=== PATIENT | female | born 1995 | race Caucasian/White ===

== ENCOUNTER 2017-01-28 06:01 | Inpatient (IN) ==
[2017-01-28] MEDS ORDERED: Lidocaine -MPF 1% 2 ML VIAL ONE (06:16)
[2017-01-28] MEDS ORDERED: Ringers Solution, Lactated 1,000 ML ONE ×3 (06:16→09:01)
[2017-01-28] MEDS ORDERED: Famotidine 20 MG/2 ML VIAL IVP ONE (06:20)
[2017-01-28] MEDS ORDERED: Oxytocin 20 units/ LR 1000 mL 20 UNIT/1,000 ML BAG IVC ONE (06:20)
[2017-01-28] MEDS ORDERED: Metoclopramide 10 MG/2 ML VIAL IVP ONE (06:20)
[2017-01-28] MEDS ORDERED: CeFAZolin Premix DUPLEX 2,000 MG/50 ML BAG IVPB ONE (06:20)
[2017-01-28] MEDS ORDERED: Naloxone 0.4 MG/ML INJ IVP PRN (06:27)
[2017-01-28] MEDS ORDERED: Ringers Solution, Lactated 1,000 ML IVC SCH (06:30)
--- NOTE | 2017-01-28 06:33 | Anesthesia Evaluation PreOp ---
Date of Encounter: 01/28/17 Time of Encounter: 06:31 - Past History Planned Operation: repeat Cardiac History: Denies any Significant Hx Pulmonary History: Denies Any Significant HX COATING AND EMBOSSING UNIT OPERATOR History: Denies Any Significant HX Other Medical History: Other (anemia) Anesthesia History: No Prior Anesthetic Complications, Past Anesthesia Alcohol Use: none Drug use: none Medications and Allergies Ferrous Sulfate [Iron] 325 mg PO DAILY 01/28/17 [History] Pediatric Multivit Comb. No.49 [Flintstones Gummies] 1 tab PO DAILY 01/28/17 [ History] 3 Allergy/AdvReac Type Severity Reaction Status Date / Time No Known Allergies Allergy Verified 01/28/17 06:28 Anesthesia Exam - HEENT Pupil (Motor): Pupils equal Mallampati: II Teeth: Normal Oral Opening: Greater than 3 - COATING AND EMBOSSING UNIT OPERATOR LOC: Oriented COATING AND EMBOSSING UNIT OPERATOR Motor: Normal RUE, Normal LUE, Normal RLE, Normal LLE, Normal Face COATING AND EMBOSSING UNIT OPERATOR Sensory: Normal: RUE, LUE, RLE, LLE, Face - Cardiac Rhythm: Regular Murmur: None - Pulmonary Breath Sounds: bilateral Clear Respiratory Effort: Symmetrical Anesthesia Assess/Plan ASA Score: 2 Modified [place] Scale for Level of Consciousness: Cooperative, oriented, and tranquil Anesthetic Plan: General, Regional Monitoring Plan: Standard Monitors Recovery Plan: PACU
[2017-01-28] MEDS ORDERED: *HR* Promethazine 25 MG/ML VIAL IVP PRN (06:34)
[2017-01-28] MEDS ORDERED: *HR* HYDROmorphone (PF) 1 MG/ML SYRINGE IVP PRN (06:34)
[2017-01-28] MEDS ORDERED: *HR* Labetalol 20 MG/4 ML SYRINGE IVP PRN (06:34)
[2017-01-28] MEDS ORDERED: *HR* FentaNYL (PF) 100 MCG/2 ML VIAL ONE (06:46)
[2017-01-28] MEDS ORDERED: *HR* Morphine Sulfate/PF 5 MG/10 ML AMPUL ONE (06:46)
--- NOTE | 2017-01-28 06:48 | OB/GYN History & Physical ---
Date of Encounter: 01/28/17 Time of Encounter: 06:35 Assessment and Plan (1) 39 weeks gestation of Current visit: Yes Status: Acute Patient is scheduled for a repeat and will be admitted to labor and delivery. - Cefazolin - IV fluids - Oxytocin - NPO - CBC - UDS - Hydromorphone PRN. History of Present Illness Chief complaint: Scheduled HPI: Ms. Barnett is a 21 year old female at 39 2/7 weeks gestation that presents for a scheduled . She admits to good movement. Denies vaginal fluid leakage or bleeding. She denies any regular contractions. Denies OLVERA, vision changes, fever, chest pain, nausea, vomiting, dysuria, or diarrhea. GBS: negative HIV Ag/Ab: non-reactive T. Pallidum: negative Rubella Ab: positive Varicella Ab: positive Blood Type: A+ HepBSAg: non-reactive Past Med Surg Social Fam HX - Past Medical History Medical history: no medical history Psychiatric history: no psych history - Past Surgical History Surgical History: - Social History Smoking Status: Never smoker Smokeless Tobacco Status: No Alcohol use: none Drug use: none - Family History Father Age: 43 Family Member Ethnicity: Non- Living Status: Cause of : heart attack Obstetrical History - Pregnancies : 3 Para: 2 Term: 2 : 0 Ab's: 0 Livin Medications and Allergies Ferrous Sulfate [Iron] 325 mg PO DAILY 01/28/17 [History] Pediatric Multivit Comb. No.49 [Flintstones Gummies] 1 tab PO DAILY 01/28/17 [ History] 3 Allergy/AdvReac Type Severity Reaction Status Date / Time No Known Allergies Allergy Verified 01/28/17 06:28 Exam - Vital Signs Vital signs: BP: 121/73 HR: 88 FHR: 133 [place]: 24 - Constitutional Constitutional: well developed, well nourished, no acute distress, average body habitus - Lungs Respiratory exam: CTAB - Cardiovascular Cardiovascular exam: RRR, +S1, +S2 - Abdomen Abdomen: Present: bowel sounds normal, gravid, non tender - Extremities Extremities exam: full ROM, normal capillary refill, normal inspection, radial pulses palpable and symmetrical Deep Tendon Reflex Grade: 2+ Normal - Comments Comments: Extremities: pedal pulses intact and symmetrical bilaterally. Results All other labs normal. - VTE Reasons for not Prescribing Prophylaxis: Treatment not Indicated - Low risk for VTE
[2017-01-28 06:58] LABS: Basophils # 0.1 K/mcL (0.0-0.2); Basophils % 0.8 %; Eosinophils # 0.1 K/mcL (0.0-0.6); Eosinophils % 1.4 %; Hemoglobin 12.4 g/dL (11.5-15.4); Immature Granulocytes % 3.7 % (0-4); Lymphocytes # 1.7 K/mcL (0.6-4.6); Lymphocytes % 17.4 %; Mean Corpuscular HGB Conc 33.5 g/dL (31.6-35.5); Mean Corpuscular Hemoglobin 29.5 pg (28.0-33.3); Mean Corpuscular Volume 87.9 fL (83.0-100.0); Mean Platelet Volume 10.8 fL (9.4-12.4); Monocytes # 0.7 K/mcL (0.0-1.3); Monocytes % 6.7 %; Neutrophils # 6.9 K/mcL (1.6-8.9); Platelet Count 260 K/mcL (140-400); Red Blood Count 4.21 M/mcL (3.82-4.97); Red Cell Distribution Width 13.4 % (11.5-14.5)
--- NOTE | 2017-01-28 07:27 | History & Physical Report ---
Date of Encounter: 01/28/17 Time of Encounter: 07:26 24 Hour HP Update - Instructions Instructions: If the History and Physical is less than 30 days old and was completed prior to A.M. admission and or procedure and has NOT been updated on calendar day of procedure please complete this update prior to performing procedure. - Update Patient reports changes in Medical Condition: No Changes in examination, assessment, or condition: No Changes in Medication: No Preop tests/diagnostics Reviewed: Yes Surgery Remains Indicated: Yes Consent for Planned Operative Procedure(s) Verified: Yes - Pre-Operative Checklist Preoperative Checklist Indicated: Yes Prophylactic Antibiotic Ordered: Yes Home Medications Include Beta Sky: No Is VTE Prophylaxis Indicated?: Yes
[2017-01-28] MEDS ORDERED: *HR* Phenylephrine 10 MG/ML VIAL ONE (07:38)
[2017-01-28] MEDS ORDERED: *HR* Oxytocin 10 UNIT/ML VIAL IM ONE ×2 (08:27→09:02)
--- NOTE | 2017-01-28 09:12 | OB/GYN Procedure Note ---
Section - Date of procedure: 01/28/17 Preop diagnosis: desires repeat Post-op diagnosis: same Procedure: repeat low transverse Surgeon: Waldo Cobb Estimated blood loss (cc): 500 Excellence Coach: Frank Willis Anesthesia Type: Spinal section complications: none Disposition: L&D Recovery Room Specimens: Placenta - Infant (s) A Delivery Date: 01/28/17 Delivery Time: 08:25 Presentation: vertex Position: YUMIKO Route of delivery: other Gender: Male Viability: Viable Pounds: 7 Ounces: 9 Gram Weight: 3420 kg at 1 minute: 9 at 5 minutes: 9 Shoulder Dystocia: not encountered Placenta: complete extraction Cord: 3 umbilical vessels - Narrative Narrative: Patient was taken to the operating room and placed in supine position with left uterine displacement following the administration of spinal anesthetic. Skin was then prepped and draped in usual sterile fashion, and a timeout procedure was performed. A Pfannenstiel incision was performed removing the previous surgical scar, and extended down to the fascial layer until the abdominal cavity was entered. A bladder flap was then gently created with sharp dissection. A low transverse uterine incision was performed and extended bilaterally with bandage scissors. The membranes were then ruptured with clear fluid present. A viable male was delivered from a vertex presentation with scores of 9 and 9 at 1 and 5 minutes respectively and the weighed 7 pounds 9 ounces. The cord was clamped and cut, and the was handed to the nursery team. The placenta was manually removed. The uterine cavity was wiped clean with wet lap sponge. The uterine incision was closed in a layered fashion with 0 Vicryl suture in a running locking fashion. Good hemostasis was noted. The Paracolic gutters were then gently wiped clean with wet lap sponge. Inspection was then performed with good hemostasis still noted. The fascial layer was closed with 0 PDS Stratafix suture in a running nonlocking fashion. The subcutaneous layer was irrigated with sterile water and then closed with 4-0 Vicryl suture in a running nonlocking fashion, and continuing to close the skin in a running subcuticular fashion. A piece of Dermabond mesh was then applied over the incision site. Patient tolerated procedure well, all sponge needle and instrument counts reported as correct. Estimated blood loss was 500 mL. The urine in the Gutiérrez catheter was clear and yellow, and she was taken to recovery room in stable condition.
[2017-01-28 10:18] LABS: Amphetamine Screen,Urine Negative ng/mL (Cutoff=1000); Barbiturate Screen,Urine Negative ng/mL (Cutoff=200); Benzodiazepines Screen,Urine Negative ng/mL (Cutoff=200); Cannabinoid Screen,Urine Negative ng/mL (Cutoff = 50); Cocaine Screen,Urine Negative ng/mL (Cutoff= 300); Opiate Screen,Urine Negative ng/mL (Cutoff=300); Phencyclidine Screen,Urine Negative ng/mL (Cutoff=25)
[2017-01-28] MEDS ORDERED: Oxytocin 20 units/ LR 1000 mL 20 UNIT/1,000 ML BAG IVC SCH (11:36)
[2017-01-28] MEDS ORDERED: Ibuprofen 600 MG TABLET PO PRN (11:36)
[2017-01-28] MEDS ORDERED: *HR* OxyCODONE/APAP 5/325 TABLET PO PRN (11:36)
[2017-01-28] MEDS ORDERED: Metoclopramide 10 MG/2 ML VIAL IVP PRN (11:36)
[2017-01-28] MEDS ORDERED: Ondansetron 4 MG/2 ML VIAL IVP PRN (11:36)
[2017-01-28] MEDS ORDERED: Simethicone 80 MG TAB.CHEW PO PRN (11:36)
--- NOTE | 2017-01-28 16:11 | Anesthesia Evaluation Post Op ---
Date of Encounter: 01/28/17 Time of Encounter: 16:10 - Vital Signs Vital Signs: Vital Signs/O2 Sat, Most Current Temp Pulse Resp BP Pulse Ox 98.0 F 73 16 113/71 97 01/28/17 15:07 01/28/17 15:07 01/28/17 15:07 01/28/17 15:07 01/28/17 12:38 - Lungs Lungs: Clear Ascult./Percussion - Airway Airway: Non-obstructed - Cardiovascular Regular Rate - Mental Status Mental Status: Alert & Oriented, Answers Appropriately - Pain Pain Scale: 3 - Nausea Vomiting Nausea Vomiting: Not Present - Hydration Hydration: Tolerates oral liquids, Gutiérrez catheter - Discharge PostOp Status: Transfer Patient to floor
[2017-01-29 07:33] LABS: Eosinophils % 0.6 %; Hemoglobin 11.3 g/dL (11.5-15.4); Immature Granulocytes % 1.3 % (0-4); Lymphocytes % 8.4 %; Mean Corpuscular HGB Conc 33.2 g/dL (31.6-35.5); Mean Corpuscular Hemoglobin 29.6 pg (28.0-33.3); Mean Platelet Volume 10.4 fL (9.4-12.4); Monocytes % 5.4 %; Platelet Count 192 K/mcL (140-400); Red Blood Count 3.82 M/mcL (3.82-4.97); Red Cell Distribution Width 13.4 % (11.5-14.5); Segmented Neutrophils % 83.7 %
[2017-01-29 07:34] LABS: Basophils # 0.1 K/mcL (0.0-0.2); Basophils % 0.6 %; Eosinophils # 0.1 K/mcL (0.0-0.6); Monocytes # 0.7 K/mcL (0.0-1.3)
--- NOTE | 2017-01-29 08:56 | OB/GYN Progress Note ---
Date of Encounter: 01/29/17 Time of Encounter: 08:54 - Assessment and Plan (1) S/P repeat low transverse Current Visit: Yes Status: Acute Continue routine post-op/ post orders Anticipate discharge home tomorrow. Subjective - Subjective Principal diagnosis: Repeat C/S Interval history: S/P R C/S Day1 Pain is well controlled; referred gas pain in right shoulder - encouraged walking, water, and gas-x; excellent bowel sounds and passing flatus VSS Lochia light and without clots Voiding and passing flatus without difficulty. Pumping and breast feeding Discharge home tomorrow. Patient reports: appetite normal, voiding normally, pain well controlled, ambulating normally [place]: doing well, nursing well Objective - Vital Signs Latest vital signs: Vital Signs Temp Pulse Pulse Resp BP Pulse Ox 01/29/17 06:00 16 01/29/17 03:35 98 F 75 14 107/66 96 01/29/17 00:10 97.9 F 76 16 112/69 97 01/28/17 22:42 16 01/28/17 20:20 97.9 F 65 14 109/69 96 01/28/17 15:07 98.0 F 73 16 113/71 01/28/17 15:04 16 01/28/17 13:36 98.5 F 84 80 16 100/60 01/28/17 13:35 98.5 F 84 16 100/60 01/28/17 12:38 97.5 F L 79 12 108/62 97 01/28/17 12:32 97.5 F L 79 12 108/62 97 01/28/17 12:00 76 16 01/28/17 11:30 98.3 F 74 12 111/69 98 Intake and Output 01/28/17 01/29/17 01/29/17 23:59 07:59 15:59 Output Total 200 / 200 1500 / 1500 500 / 500 Balance -200 / -200 -1500 / -1500 -500 / -500 Output: Urine 500 / 500 Catheter 200 / 200 1500 / 1500 Other: Weight 68.8 kg Patient Weight 01/29/17 23:59 Weight 68.8 kg - Exam Lungs: bilateral: normal Chest: Normal S1, Normal S2 Extremities: Present: normal Abdomen: Present: normal appearance, soft. Absent: gravid, tenderness Incision: Present: normal, dry, intact Uterus: Present: normal, firm Fundal Height: 0 (U) - Labs Labs: Laboratory Results - last 24 hr 01/28/17 01/29/17 06:20 07:16 WBC 12.0 H RBC 3.82 Hgb 11.3 L Hct 34.0 L MCV 89.0 MCH 29.6 MCHC 33.2 RDW 13.4 Plt Count 192 MPV 10.4 Immature Gran % 1.3 Seg Neutrophils % 83.7 Lymphocytes % 8.4 Monocytes % 5.4 Eosinophils % 0.6 Basophils % 0.6 Neutrophils # 10.0 H Lymphocytes # 1.0 Monocytes # 0.7 Eosinophils # 0.1 Basophils # 0.1 Urine Opiates Screen Negative Ur Barbiturates Screen Negative Ur Phencyclidine Scrn Negative Ur Amphetamines Screen Negative U Benzodiazepines Scrn Negative Urine Cocaine Screen Negative U Marijuana (THC) Screen Negative
[2017-01-29] MEDS ORDERED: Prenatal Vit/FA 1 EACH TABLET PO SCH (09:00)
[2017-01-29] MEDS ORDERED: Acetaminophen w/Codeine 120-12 mg Soln 5 ML UDC PO PRN (09:33)
[2017-01-29 20:46] VITALS: BP 111/79
--- NOTE | 2017-01-30 08:43 | Discharge Summary ---
Date of Encounter: 01/30/17 Time of Encounter: 08:00 - Discharge Diagnosis (1) 39 weeks gestation of Priority: Primary Status: Resolved (2) S/P repeat low transverse Priority: Primary Status: Acute Comments: Pain well managed on po pain medication, tolerates regular diet, breast and bottle feeding , desires discharge. - Discharge Medications Prescriptions: Ibuprofen [Motrin] 600 mg PO Q6HR PRN #60 tablet PRN Reason: Cramping OxyCODONE/APAP 5/325 [Percocet 5/325 MG] 1 each PO Q6HR PRN #20 tablet PRN Reason: Moderate pain 4-6 Breast Pump [BREAST PUMP] 1 each .ROUTE AD #1 each Docusate [Colace] 100 mg PO BID #30 capsule Home Medications: Pediatric Multivit Comb. No.49 [Flintstones Gummies] 1 tab PO DAILY 01/28/17 [ History] Breast Pump [BREAST PUMP] 1 each .ROUTE AD #1 each 01/30/17 [Rx] Docusate [Colace] 100 mg PO BID #30 capsule 01/30/17 [Rx] Ibuprofen [Motrin] 600 mg PO Q6HR PRN #60 tablet 01/30/17 [Rx] OxyCODONE/APAP 5/325 [Percocet 5/325 MG] 1 each PO Q6HR PRN #20 tablet 01/30/17 [Rx] Allergies/Adverse Reactions: 3 Allergy/AdvReac Type Severity Reaction Status Date / Time No Known Allergies Allergy Verified 01/28/17 06:28 Data Procedures and tests throughout hospitalization: Laboratory Tests 01/28/17 01/28/17 01/29/17 06:20 06:20 07:16 WBC 9.9 12.0 H RBC 4.21 3.82 Hgb 12.4 11.3 L Hct 37.0 34.0 L MCV 87.9 89.0 MCH 29.5 29.6 MCHC 33.5 33.2 RDW 13.4 13.4 Plt Count 260 192 MPV 10.8 10.4 Immature Gran % 3.7 1.3 Seg Neutrophils % 70.0 83.7 Lymphocytes % 17.4 8.4 Monocytes % 6.7 5.4 Eosinophils % 1.4 0.6 Basophils % 0.8 0.6 Neutrophils # 6.9 10.0 H Lymphocytes # 1.7 1.0 Monocytes # 0.7 0.7 Eosinophils # 0.1 0.1 Basophils # 0.1 0.1 Urine Opiates Screen Negative Ur Barbiturates Screen Negative Ur Phencyclidine Scrn Negative Ur Amphetamines Screen Negative U Benzodiazepines Scrn Negative Urine Cocaine Screen Negative U Marijuana (THC) Screen Negative Date of admission: 01/28/17 06:01 Primary care physician: PCP NONE Discharging clinician: Russell Murdock Anticipated date of discharge: 01/30/17 - Patient Status Disposition: Home, Self-Care Condition: Good Functional capacity at discharge: independent ambulation Overall status at discharge: patient is progressing back to baseline - Discharge Instructions Additional Instructions: Perineal Care: Always wipe front to back Change your pad frequently Use your schuyler bottle with warm water and spray front to back Do not douche, use tampons, have sexual intercourse or put anything in your vagina for 4-6 weeks after delivery Bleeding: Vaginal bleeding can last up to 6 weeks Your menstrual period may return as early as 6 weeks after you are discharged from the hospital Kevin/Stitches Care: Vaginal Delivery Vaginal stitches will dissolve within 4-6 weeks Follow perineal care instructions Care Stitches will dissolve on their own If you have kevin, they will need to be removed in the doctors office within 5-7 days. You may shower with stitches or kevin Drip plan or soapy water over the incision to clean. Pat dry gently with a clean towel. Make sure you completely dry under the skin folds DO NOT USE powders, lotions, rubbing alcohol or hydrogen peroxide on or around your incision. This will slow your wound healing It is normal to have soreness, burning, tingling, itchiness and/or numbness as your incision heals Activity: Rest frequently Do not lift anything heavier than a gallon of milk, up to 10-15 pounds No driving for 1-2 weeks for Vaginal delivery No driving for 2-4 weeks for delivery Take stairs slowly, one at a time Gradually increase your daily activity until you are back to your normal routine Do not exercise until you have had your follow-up appointment Bathing: Take a shower daily Do not take a tub bath for the first 4 weeks Diet: Drink plenty of water and fruit juices Eat a well-balanced diet with foods high in fiber such as fruits and vegetables Depression: Your hormones have a major impact on your feelings and emotions. Hormone imbalance may cause changes in your mood, creating unfamiliar thoughts and actions. Support is available to help you understand and cope with these feelings and mood changes. If you answer yes to any of the following questions, please call your health care provider: Are you having trouble sleeping? Are you feeling isolated? Have you lost your appetite? Are you having thoughts of hurting yourself or others? WARNING SIGNS: Heavy bleeding from the vagina (blood is bright red and soaks a sanitary pad in an hour or less.) Passing a blood clot larger than your fist Discharge from the vagina that has a bad odor Temperature over 100.4 F, or if you feel cold and have chills An episiotomy site that is warm, swollen or oozing. Use a mirror if needed Urination (pee) that is painful, very red and swollen or leaking fluid An incision that is painful, very red and swollen and leaking fluid An incision that has come open Breasts that are painful or full with flu like symptoms Redness, warmth or swelling in the calf of your leg Trouble breathing, dizziness, visual disturbance or faintness *Notify your health care provider immediately or go to the nearest Emergency Room if you experience any of the above signs.* To contact the nurses station 24 hours a day, For non-urgent, routine questions, please call the office at - Diet and Activity Activity: resume usual activities as tolerated Diet: regular diet Hospital Course Reason for admission: section Delivery: section Episiotomy: none Laceration: none Other procedures: none complications: none Discharge diagnosis: IUP at term delivered baby: male Hospital course: Ms. Barnett is a 21 year old female that presented at 39 2/7 weeks gestation for a scheduled . She admitted to good movement. Denied vaginal fluid leakage or bleeding. She denied any regular contractions. Patient was taken to the operating room and placed in supine position with left uterine displacement following the administration of spinal anesthetic. Skin was then prepped and draped in usual sterile fashion, and a timeout procedure was performed. A Pfannenstiel incision was performed removing the previous surgical scar, and extended down to the fascial layer until the abdominal cavity was entered. A bladder flap was then gently created with sharp dissection. A low transverse uterine incision was performed and extended bilaterally with bandage scissors. The membranes were then ruptured with clear fluid present. A viable male was delivered from a vertex presentation with scores of 9 and 9 at 1 and 5 minutes respectively and the infant weighed 7 pounds 9 ounces. The cord was clamped and cut, and the infant was handed to the nursery team. The placenta was manually removed. The uterine cavity was wiped clean with wet lap sponge. The uterine incision was closed in a layered fashion with 0 Vicryl suture in a running locking fashion. Good hemostasis was noted. The Paracolic gutters were then gently wiped clean with wet lap sponge. Inspection was then performed with good hemostasis still noted. The fascial layer was closed with 0 PDS Stratafix suture in a running nonlocking fashion. The subcutaneous layer was irrigated with sterile water and then closed with 4-0 Vicryl suture in a running nonlocking fashion, and continuing to close the skin in a running subcuticular fashion. A piece of Dermabond mesh was then applied over the incision site. Patient tolerated procedure well, all sponge needle and instrument counts reported as correct. Estimated blood loss was 500 mL. The urine in the Gutiérrez catheter was clear and yellow, and she was taken to recovery room in stable condition. When seen today, patient says that she is doing well and in good mood. The baby is doing well. She is currently breast and bottle feeding the baby. She admits to minimal vaginal bleeding. She is able to ambulate well. She rates her abdominal cramps as a 1-2/10 on the pain scale. She has been able to void. She has not been able to have a bowel movement yet, but she has been able to pass gas. She has a follow-up appointment with Dr. Cobb on 02/11/17. OARRS checked Section - Date of procedure: 01/28/17 Preop diagnosis: desires repeat Post-op diagnosis: same Procedure: repeat low transverse Surgeon: Waldo Cobb Estimated blood loss (cc): 500 General I Farmworker: Frank Willis Anesthesia Type: Spinal section complications: none Disposition: L&D Recovery Room Specimens: Placenta - Infant (s) A Delivery Date: 01/28/17 Delivery Time: 08:25 Presentation: vertex Position: YUMIKO Route of delivery: other Gender: Male Viability: Viable Pounds: 7 Ounces: 9 Gram Weight: 3420 kg at 1 minute: 9 at 5 minutes: 9 Shoulder Dystocia: not encountered Placenta: complete extraction Cord: 3 umbilical vessels Time Attestation: Total time spent providing and/or coordinating discharge services: - VTE Reasons for not Prescribing Prophylaxis: Treatment not Indicated - Low risk for VTE Documentation of Mechanical Device: Intermittent pneumatic compression device Exam - Constitutional Vitals: Temp Pulse Resp BP Pulse Ox 98.0 F 64 14 111/79 97 01/29/17 20:05 01/29/17 21:15 01/29/17 21:15 01/29/17 20:05 01/29/17 20:05 General appearance IM: A&O X 3, pleasant, no acute distress, answers questions appropriately - Respiratory Respiratory exam: Present: CTAB - Cardiovascular Cardiovascular exam IM: Present: RRR, +S1, +S2 - GI/Abdominal GI/Abdominal exam IM: normal bowel sounds, soft Incision: normal, dry, intact - Uterine Tone: Firm - Extremities Exam Extremities exam IM: Present: full ROM, normal capillary refill, normal inspection, radial pulses palpable and symmetrical. Absent: pedal edema Additional comments: Pedal pulses intact and symmetrical bilaterally. - Neurological Exam Neurological exam: reflexes normal - Psychiatric Additional comments: Reports good mood.
== END 2017-01-30 14:00 | disposition home or self-care (01) | DRG 540 ==
LOC: 1NENULAB 06:01 → 1NENUOBS 11:36